=== PATIENT | female | born 1990 | race Caucasian/White ===

== ENCOUNTER → 2020-05-25 | Outpatient (REF) | payer OTHER ==
[2020-05-25 19:01] LABS: CHLAMYDIA DNA AMPLIFICATION NEGATIVE (NEGATIVE); GC DNA AMPLIFICATION NEGATIVE (NEGATIVE)
== END ==
LOC: M SFHCWAGY 16:46
PROVIDERS: ATTEND Advanced Practice Midwife
DX: Z34.81 Encounter for supervision of other normal pregnancy, first trimester (principal); Z3A.08 8 weeks gestation of pregnancy

== ENCOUNTER → 2020-06-16 | Outpatient (REF) | payer OTHER ==
[2020-06-16 12:30] LABS: HEMATOCRIT 40.9 % (36.0-47.0); HEMOGLOBIN 13.6 g/dl (12.0-15.5); MEAN CORPUSCULAR HEMOGLOBIN 31.2 pg (27.0-33.0); MEAN CORPUSCULAR HGB CONC 33.3 g/dl (32.0-36.5); MEAN CORPUSCULAR VOLUME 93.8 fl (80.0-96.0); PLATELET COUNT, AUTOMATED 420 10^3/uL (150-450); RED BLOOD COUNT 4.36 10^6/uL (4.00-5.40); WHITE BLOOD COUNT 15.5 10^3/uL (4.0-10.0)
[2020-06-16 12:59] LABS: FREE T4 1.18 NG/DL (0.76-1.46)
[2020-06-16 13:34] LABS: HEPATITIS C VIRUS ABY INDEX 0.1 INDEX (<0.8)
[2020-06-16 13:35] LABS: HIV 1&2 SCREEN CENTAUR NEGATIVE (NEGATIVE)
[2020-06-16 13:43] LABS: CHLAMYDIA DNA AMPLIFICATION NEGATIVE (NEGATIVE); GC DNA AMPLIFICATION NEGATIVE (NEGATIVE)
== END ==
LOC: M PLALAB 07:48
PROVIDERS: ATTEND Advanced Practice Midwife
DX: Z3A.08 8 weeks gestation of pregnancy (principal)

== ENCOUNTER → 2020-07-13 | Outpatient (REF) | payer OTHER | LOC: M SFHCWAGY 13:45 | PROVIDERS: ATTEND Advanced Practice Midwife | DX: Z12.4 Encounter for screening for malignant neoplasm of cervix (principal); R87.610 Atypical squamous cells of undetermined significance on cytologic smear of cervix (ASC-US) ==

== ENCOUNTER → 2020-08-14 | Outpatient (CLI) | payer OTHER ==
--- NOTE | 2020-08-14 17:03 | REP ---
INDICATION: ANATOMY COMPARISON: None. TECHNIQUE: Transabdominal obstetrical ultrasound with color Doppler evaluation. FINDINGS: Examination demonstrates a single live intrauterine in cephalic presentation. motion is identified by technologist. Placenta is noted posterior and grade 2 without evidence for placenta previa or abruption. Amniotic fluid volume is normal. Cervix measures 3.8 cm in length and appears closed.. Gestational age by LMP 20 weeks 1 day with LEILANI 12/31/2020. Gestational age by current measurements 20 weeks 2 days with LEILANI 12/30/2020. FHR equals 167 beats per minute. BPD: 5.0 cm at 21 weeks 0 days HC: 18.3 cm at 20 weeks 5 days AC: 15.1 cm at 20 weeks 2 days FL: 3.1 cm at 19 weeks 5 days HL: 3.0 cm at 19 weeks 6 days HC/AC: 1.21 Estimated weight 334 grams (44thpercentile). Anatomical assessment demonstrates normal structures including cranium, choroid plexus, cavum, cerebellum/posterior fossa, facial features, lungs, four-chamber heart/ventricular outflow tracts, diaphragm, stomach, cord insertion/three-vessel cord, kidneys/bladder, spine, and extremities. IMPRESSION: Single live intrauterine in cephalic presentation demonstrating appropriate estimated weight and growth. Anatomical assessment is complete and normal. <Electronically signed by Dmitriy Esqueda > 08/14/20 [id number]
== END ==
LOC: M WHC 15:11
PROVIDERS: ATTEND Advanced Practice Midwife
DX: O09.292 Supervision of pregnancy with other poor reproductive or obstetric history, second trimester (principal); Z3A.20 20 weeks gestation of pregnancy

== ENCOUNTER → 2020-10-18 | Outpatient (CLI) | payer OTHER | LOC: M LAB 08:18 | PROVIDERS: ATTEND Obstetrics & Gynecology | DX: Z36.89 Encounter for other specified antenatal screening (principal) ==

== ENCOUNTER 2020-10-20 16:30 | Outpatient (CLI) | payer OTHER ==
[~2020-10-20] VITALS: Ht 160 cm; Wt 57.2 kg
[2020-10-20 16:33] VITALS: BP 141/86
[2020-10-20] MEDS ORDERED: COLA100C5 PO (16:43)
[2020-10-20] MEDS ORDERED: ZOFR4TAB16 PO (16:43)
[2020-10-20] MEDS ORDERED: PRENTAB9 PO (16:43)
[2020-10-20] MEDS ORDERED: LR 1,000 ML IV SCH (16:50)
[2020-10-20] MEDS ORDERED: LACTATED RINGER'S 1000 ML IV ONE (16:50)
--- NOTE | 2020-10-20 17:09 | IPNPDOC ---
Text Note Date of Service The patient was seen on 10/20/20. NOTE Outpatient 30yo LEILANI 12/31/2020. Presents @ 29w5d with complaints of severe epigastric pain, nausea and vomiting since yesterday. Reports inability to keep fluids down. Last solids yesterday afternoon, chicken macnuggets and fries. Reports hx pancreatitis 2011. 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 Appears very ill, dry heaves. FH 135, difficult to trace due to maternal movements Uterine irritability Spec exam cervix visually LTC, FFN obtained SVE LTC, OOP NPO, IV hydration, labs, antiemetic, sonogram and reassess. Tiki Field CNM Oct 20, 2020 17:09
[2020-10-20 17:13] LABS: HEMATOCRIT 40.3 % (36.0-47.0); HEMOGLOBIN 13.6 g/dl (12.0-15.5); MEAN CORPUSCULAR HEMOGLOBIN 32.6 pg (27.0-33.0); MEAN CORPUSCULAR HGB CONC 33.7 g/dl (32.0-36.5); MEAN CORPUSCULAR VOLUME 96.6 fl (80.0-96.0); PLATELET COUNT, AUTOMATED 334 10^3/uL (150-450); RED BLOOD COUNT 4.17 10^6/uL (4.00-5.40); WHITE BLOOD COUNT 19.5 10^3/uL (4.0-10.0)
[2020-10-20] MEDS ORDERED: ONDANSETRON 4MG/2ML VIAL IV ONE (17:15)
[2020-10-20 17:30] VITALS: BP 138/80
[2020-10-20 17:39] LABS: AMYLASE 36 U/L (25-115); LIPASE 68 U/L (73-393)
[2020-10-20 17:42] LABS: ALBUMIN 3.2 GM/DL (3.2-5.2); ALT/SGPT 15 U/L (12-78); BILIRUBIN,TOTAL 0.4 MG/DL (0.2-1.0); BLOOD UREA NITROGEN 6 MG/DL (7-18); CALCIUM LEVEL 9.4 MG/DL (8.5-10.1); CARBON DIOXIDE LEVEL 22 MEQ/L (21-32); CHLORIDE LEVEL 107 MEQ/L (98-107); CREATININE FOR GFR 0.47 MG/DL (0.55-1.30); GLOMERULAR FILTRATION RATE > 60.0 (>60); GLUCOSE, FASTING 89 MG/DL (70-100); LDH LACTATE DEHYDROGENASE 138 U/L (84-246); POTASSIUM SERUM 3.4 MEQ/L (3.5-5.1); SODIUM LEVEL 138 MEQ/L (136-145); TOTAL PROTEIN 6.9 GM/DL (6.4-8.2); URIC ACID 2.8 MG/DL (2.6-6.0)
--- NOTE | 2020-10-20 18:09 | REP ---
INDICATION: nause COMPARISON: None. TECHNIQUE: Real time sneed scale ultrasound examination using curved array transducer. FINDINGS: Liver is normal in contour, size, and echogenicity without focal hepatic lesions identified. Pancreas is incompletely evaluated due to interposed bowel gas. The gallbladder is normal and without gallstones, wall thickening, or pericholecystic fluid. No biliary ductal dilatation is appreciated and the common bile duct measures 4.5 mm diameter. Right kidney is normal in reniform shape without hydronephrosis and measures 12.7 x 5.9 x 4.7 cm cm. No ascites in the visualized right upper quadrant. Incidental note is made of intrauterine in breech presentation (FHR equals 138 BPM). IMPRESSION: Essentially normal limited right upper quadrant ultrasound <Electronically signed by Dmitriy Esqueda > 10/20/20 [id number]
[2020-10-20 18:38] LABS: AMORPHOUS SEDIMENT SMALL (NEGATIVE); APPEARANCE, URINE HAZY (CLEAR); BACTERIA, URINE AUTO NEGATIVE (NEGATIVE); BILIRUBIN, URINE AUTO NEGATIVE (NEGATIVE); BLOOD, URINE BLOOD NEGATIVE (NEGATIVE); COLOR, URINE YELLOW (YELLOW); GLUCOSE, URINE (UA) AUTO NEGATIVE (NEGATIVE); KETONE, URINE AUTO 2+ mg/dL (NEGATIVE); LEUKOCYTE ESTERASE, URINE AUTO NEGATIVE (NEGATIVE); MUCUS, URINE SMALL (NEGATIVE); NITRITE, URINE AUTO NEGATIVE (NEGATIVE); PROTEIN, URINE AUTO 1+ mg/dL (NEGATIVE); RBC, URINE AUTO 2 /HPF (0-3); SPECIFIC GRAVITY URINE AUTO 1.011 (1.002-1.035); SQUAMOUS EPITHELIAL CELL UR AU 2 /HPF (0-6); WBC, URINE AUTO 1 /HPF (0-3)
[2020-10-20] MEDS: KETOROLAC 30 MG/ML 1ML VIAL IV SCH (18:47)
[2020-10-20 18:49] LABS: AMPHETAMINES URINE REFLEX NEGATIVE (NEGATIVE); BARBITURATES URINE REFLEX NEGATIVE (NEGATIVE); BENZODIAZEPINES URINE REFLEX NEGATIVE (NEGATIVE); CANNABINOIDS URINE REFLEX NEGATIVE (NEGATIVE); COCAINE METABOLITE URINE REFLE NEGATIVE (NEGATIVE); METHADONE URINE REFLEX NEGATIVE (NEGATIVE); OPIATES URINE REFLEX NEGATIVE (NEGATIVE); PHENCYCLIDINE URINE REFLEX NEGATIVE (NEGATIVE)
[2020-10-20 18:50] LABS: TOTAL PROTEIN,RANDOM URINE 35.5 MG/DL (0.0-12.0)
--- NOTE | 2020-10-20 19:51 | REP ---
INDICATION: abdominal pain, abruption? COMPARISON: 08/14/2020 TECHNIQUE: Transabdominal obstetrical ultrasound with color Doppler evaluation. FINDINGS: Examination demonstrates a single live intrauterine in breech presentation. motion is identified by technologist. Placenta is noted posterior and grade 3 without evidence for placenta previa or abruption. Amniotic fluid volume is normal. Cervix measures 3.6 cm in length and appears closed.. Selected gestational age: 28 weeks 2 days with LEILANI 01/10/2021. Gestational age by current measurements 28 weeks 2 days with LEILANI 01/10/2021. FHR equals 133 beats per minute. SJ: 12.0 cm Umbilical artery SD ratio: 2.87 Estimated weight 1178 grams (48thpercentile). No obvious abnormalities are identified. IMPRESSION: Single live intrauterine in breech presentation. No gross abnormalities are identified. <Electronically signed by Dmitriy Esqueda > 10/20/201947
[2020-10-20 20:35] VITALS: BP 134/76
[2020-10-20] MEDS: OMEPRAZOLE 20 MG CAP PO SCH (20:37)
[2020-10-20] MEDS ORDERED: DOCUSATE SODIUM 100MG CAPSULE PO SCH (21:00)
[2020-10-20] MEDS ORDERED: diphenhydrAMINE 50MG CAP PO PRN (21:15)
[2020-10-20 21:43] VITALS: BP 134/70
[2020-10-20] MEDS ORDERED: MOM 30ML SUSPENSION UDC PO ONE (22:45)
[2020-10-20] MEDS: ONDANSETRON 4MG/2ML VIAL IV PRN (23:02)
[2020-10-20 23:07] VITALS: BP 129/75
[2020-10-21] MEDS ORDERED: BISACODYL 10 MG SUPP PR PRN (01:25)
[2020-10-21 03:38] VITALS: BP 111/69
[2020-10-21] MEDS: KETOROLAC 30 MG/ML 1ML VIAL IV SCH (04:07)
[2020-10-21] MEDS: ONDANSETRON 4MG/2ML VIAL IV PRN (06:45)
[2020-10-21] MEDS ORDERED: SIMETHICONE 80MG CHEW TAB PO PRN (08:20)
--- NOTE | 2020-10-21 08:30 | IPNPDOC ---
Text Note Date of Service The patient was seen on 10/21/20. NOTE S: Feels better overall. Still has gas pain at times. Some nausea. Able to to lerate liquids. Having bowel movements since using laxative. O: AVSS NAD Abd: NT, soft, gravid FHT: Cat. I toco: none Ext: NT A/P 30 yo at 29 6/7weeks with multiple GI issues including constipation, GERD, gas build-up Plan Mylicon, omeprazole, laxative use discharge home Tylenol for pain bland diet encourage liquids fu office this week VS,Fishbone, I+O VS, Fishbone, I+O Laboratory Tests 10/20/20 16:59 Vital Signs Date Time Temp Pulse Resp B/P (MAP) Pulse Ox O2 Delivery O2 Flow Rate FiO2 10/21/20 03:38 98.6 75 18 111/69 (83) MELANIE PEREYRA MD Oct 21, 2020 08:30
[2020-10-21] MEDS: OMEPRAZOLE 20 MG CAP PO SCH (08:32)
[2020-10-21] MEDS ORDERED: ACET500P3 PO (08:38)
[2020-10-21] MEDS ORDERED: OMEP40CA4 PO (08:39)
[2020-10-21] MEDS ORDERED: SIME125T PO (08:41)
[2020-10-21] MEDS ORDERED: MILKSUS3 PO (08:42)
== END 2020-10-21 10:20 | disposition home or self-care (01) ==
LOC: M LDO 16:30
PROVIDERS: ATTEND Advanced Practice Midwife
DX: O26.893 Other specified pregnancy related conditions, third trimester (principal); Z3A.29 29 weeks gestation of pregnancy; R10.2 Pelvic and perineal pain; O21.8 Other vomiting complicating pregnancy; O99.613 Diseases of the digestive system complicating pregnancy, third trimester; K59.00 Constipation, unspecified; K21.9 Gastro-esophageal reflux disease without esophagitis
CPT/HCPCS: 36415; 59025; 76705; 76816; 76820; 80053; 80307; 81001; 82150; 82247; 82565; 82570; 82731; 83615; 83690; 84156; 84450; 84460; 84550; 85027; 87086; 96374; 96375; 96376; J1885; J2405

== ENCOUNTER → 2020-12-11 | Outpatient (REF) | payer OTHER ==
[~2020-12-11] MED LIST: ACET500P3 PO; COLA100C5 PO; MILKSUS3 PO; OMEP40CA4 PO; PRENTAB9 PO; SIME125T PO; ZOFR4TAB16 PO
== END ==
LOC: M SFHCWAGY 12:58
PROVIDERS: ATTEND Obstetrics & Gynecology
DX: Z36.85 Encounter for antenatal screening for Streptococcus B (principal); Z3A.37 37 weeks gestation of pregnancy

== ENCOUNTER 2020-12-19 23:02 | Inpatient (IN) | payer OTHER ==
[~2020-12-19] VITALS: Ht 160 cm; Wt 68.5 kg
[~2020-12-19 23:02] MED LIST changes: +ACET-897 PO; +BUSP5TA PO
[2020-12-19 23:29] VITALS: BP 125/82
[2020-12-19] MEDS ORDERED: HOME MED LIST COMPLETE! XX SCH (23:30)
[2020-12-20] VITALS (9 sets, daily range): BP systolic 108–121; BP diastolic 54–74
[2020-12-20] MEDS ORDERED: LACTATED RINGER'S 1000 ML IV STA (00:12)
[2020-12-20] MEDS ORDERED: BICITRA 30ML SOLN UDC PO ONE (00:15)
[2020-12-20] MEDS ORDERED: LR 1,000 ML IV SCH ×3 (00:15→02:05)
[2020-12-20 00:24] LABS: HEMATOCRIT 34.9 % (36.0-47.0); HEMOGLOBIN 11.9 g/dl (12.0-15.5); MEAN CORPUSCULAR HGB CONC 34.1 g/dl (32.0-36.5); MEAN CORPUSCULAR VOLUME 96.7 fl (80.0-96.0); PLATELET COUNT, AUTOMATED 379 10^3/uL (150-450); RED BLOOD COUNT 3.61 10^6/uL (4.00-5.40); WHITE BLOOD COUNT 23.9 10^3/uL (4.0-10.0)
[2020-12-20] MEDS ORDERED: ONDANSETRON 4MG/2ML VIAL IV PRN ×3 (00:57→02:05)
[2020-12-20] MEDS ORDERED: diphenhydrAMINE 50MG/ML VIAL (J1200) IV PRN (00:57)
[2020-12-20] MEDS ORDERED: METOCLOPRAMIDE INJ 10MG/2ML VIAL (J2765 PER 1) IV PRN ×2 (00:57→02:05)
[2020-12-20] MEDS ORDERED: NALOXONE INJ 0.4MG/1ML VIAL (J2310 PER 1MG) IV PRN ×2 (00:57)
[2020-12-20] MEDS ORDERED: NALBUPHINE HCL 10 MG/ML AMP (J2300) IV PRN (00:57)
[2020-12-20] MEDS ORDERED: MOM 30ML SUSPENSION UDC PO PRN (01:00)
[2020-12-20] MEDS ORDERED: PERCOCET 5MG/325MG TAB PO PRN (01:00)
[2020-12-20] MEDS ORDERED: RHOGAM 300 MCG (1500 IU) INJ (J2790) IM SCH (01:00)
[2020-12-20] MEDS ORDERED: MEASLES,MUMPS,RUBELLA VACCINE INJ (MMR-II) (90707) SC SCH (01:00)
[2020-12-20] MEDS ORDERED: OXYTOCIN DRIP 30 UNITS in IV 1 EA IV SCH (01:00)
[2020-12-20] MEDS ORDERED: SIMETHICONE 80MG CHEW TAB PO PRN (01:00)
[2020-12-20] MEDS ORDERED: IBUPROFEN 800 MG TAB PO PRN (01:00)
[2020-12-20] MEDS ORDERED: AZITHROMYCIN INJ 500 MG, VIAL MATE ADAPTER 1 EACH in NS 250 ML IV ONE (01:00)
[2020-12-20] MEDS ORDERED: ceFAZolin SOD 2 GM in IV 1 EA IV ONE (01:00)
[2020-12-20] MEDS ORDERED: ACETAMINOPHEN 1000MG 100ML IV BTL (OFIRMEV) (J0131 PER 10MG) As Ordered ONE (01:09)
[2020-12-20] MEDS ORDERED: KETOROLAC 60MG 2ML VIAL As Ordered ONE (01:09)
[2020-12-20] MEDS ORDERED: MORPHINE PRES-FREE INJ 10 MG/10 ML VIAL (J2274) As Ordered ONE (01:09)
[2020-12-20] MEDS ORDERED: dexameTHASONE 4 MG/ML 1ML VIAL (J1100 PER 1MG) As Ordered ONE (01:09)
[2020-12-20] MEDS ORDERED: ONDANSETRON 4MG/2ML VIAL As Ordered ONE (01:09)
[2020-12-20] MEDS ORDERED: OXYTOCIN 30 UNITS IN 0.9% NaCl 500ML IV BAG (J2590) As Ordered ONE (01:09)
[2020-12-20] MEDS ORDERED: METOCLOPRAMIDE INJ 10MG/2ML VIAL (J2765 PER 1) As Ordered ONE (01:13)
[2020-12-20] MEDS ORDERED: PHENYLephrine 500MCG 5ML (100MCG/ML) SYRINGE As Ordered ONE (01:18)
[2020-12-20] MEDS ORDERED: fentaNYL 100 MCG/2 ML INJECTION (J3010) As Ordered ONE (01:26)
[2020-12-20] MEDS ORDERED: MIDAZOLAM INJ 2MG/2ML VIAL (J2250 PER 1MG) As Ordered ONE (01:27)
[2020-12-20] MEDS ORDERED: fentaNYL 100 MCG/2 ML INJECTION (J3010) IV PRN (02:05)
[2020-12-20] MEDS ORDERED: oxyCODONE 5MG TAB PO PRN (02:05)
[2020-12-20] MEDS: PRENATAL VITAMINS CHEWABLE TABLET PO SCH (07:54)
[2020-12-20] MEDS: KETOROLAC 30 MG/ML 1ML VIAL IV SCH ×3 (07:54→19:16)
[2020-12-20] MEDS: DOCUSATE SODIUM 100MG CAPSULE PO SCH ×2 (07:54→20:58)
[2020-12-20] MEDS: busPIRone 5 MG TAB PO SCH ×2 (13:19→20:58)
[2020-12-20] MEDS: OMEPRAZOLE 20 MG CAP PO SCH (14:25)
[2020-12-21] MEDS: PERCOCET 5MG/325MG TAB PO PRN ×3 (01:40→17:00)
[2020-12-21 02:00] VITALS: BP 109/59
[2020-12-21] MEDS: IBUPROFEN 800 MG TAB PO SCH ×2 (04:05→12:16)
[2020-12-21 05:44] VITALS: BP 108/66
[2020-12-21 08:18] LABS: HEMATOCRIT 32.2 % (36.0-47.0); HEMOGLOBIN 10.7 g/dl (12.0-15.5); MEAN CORPUSCULAR HEMOGLOBIN 32.6 pg (27.0-33.0); MEAN CORPUSCULAR HGB CONC 33.2 g/dl (32.0-36.5); MEAN CORPUSCULAR VOLUME 98.2 fl (80.0-96.0); PLATELET COUNT, AUTOMATED 303 10^3/uL (150-450); RED BLOOD COUNT 3.28 10^6/uL (4.00-5.40); WHITE BLOOD COUNT 18.3 10^3/uL (4.0-10.0)
[2020-12-21] MEDS: DOCUSATE SODIUM 100MG CAPSULE PO SCH (08:25)
[2020-12-21] MEDS: OMEPRAZOLE 20 MG CAP PO SCH (08:25)
[2020-12-21] MEDS: PRENATAL VITAMINS CHEWABLE TABLET PO SCH (08:25)
[2020-12-21] MEDS: busPIRone 5 MG TAB PO SCH (08:30)
[2020-12-21 09:45] VITALS: BP 119/58
[2020-12-21 14:00] VITALS: BP 119/65
[2020-12-21] MEDS ORDERED: IBUP80TA PO (17:33)
[2020-12-21] MEDS ORDERED: PERCOCET PO (17:33)
== END 2020-12-21 18:30 | disposition home or self-care (01) | DRG 540 ==
LOC: M LDO 23:02 → M LDI 12-20 00:06 → M OBS 12-20 03:30
PROVIDERS: ADMIT Obstetrics & Gynecology; ATTEND Obstetrics & Gynecology
PROC: 10D00Z1 Extraction of Products of Conception, Low, Open Approach (ICD-10-PCS; principal; 2020-12-20 00:15)
DX: O32.1XX0 Maternal care for breech presentation, not applicable or unspecified (principal); F41.9 Anxiety disorder, unspecified; Z3A.38 38 weeks gestation of pregnancy; O99.334 Smoking (tobacco) complicating childbirth; F17.210 Nicotine dependence, cigarettes, uncomplicated; O99.344 Other mental disorders complicating childbirth; Z37.0 Single live birth

== ENCOUNTER → 2021-10-04 | Outpatient (REF) | payer OTHER ==
[~2021-10-04] MED LIST changes: +IBUP80TA PO; +PERCOCET PO
[2021-10-04 11:40] LABS: BASO # 0.1 10^3/uL (0.0-0.2); BASO % 0.6 % (0.0-1.0); EOS # 0.4 10^3/uL (0.0-0.5); EOS % 4.3 % (0.0-3.0); HEMATOCRIT 43.4 % (36.0-47.0); HEMOGLOBIN 14.6 g/dl (12.0-15.5); LYMPH # 2.8 10^3/uL (1.5-5.0); LYMPH % 27.6 % (24.0-44.0); MEAN CORPUSCULAR HEMOGLOBIN 29.8 pg (27.0-33.0); MEAN CORPUSCULAR HGB CONC 33.6 g/dl (32.0-36.5); MEAN CORPUSCULAR VOLUME 88.6 fl (80.0-96.0); MONO # 0.6 10^3/uL (0.0-0.8); MONO % 6.3 % (2.0-8.0); NEUTROPHILS # 6.2 10^3/uL (1.5-8.5); NEUTROPHILS % 60.8 % (36.0-66.0); PLATELET COUNT, AUTOMATED 335 10^3/uL (150-450); WHITE BLOOD COUNT 10.2 10^3/uL (4.0-10.0)
[2021-10-04 12:06] LABS: ERYTHROCYTE SEDIMENTATION RATE 14 mm/hr (0-20)
[2021-10-04 12:14] LABS: ALBUMIN 3.6 GM/DL (3.2-5.2); ALT/SGPT 18 U/L (12-78); BILIRUBIN,TOTAL 0.1 MG/DL (0.2-1.0); BLOOD UREA NITROGEN 10 MG/DL (7-18); C REACTIVE PROTEIN QUANTITATIV 1.02 MG/DL (0.00-0.30); CALCIUM LEVEL 9.5 MG/DL (8.5-10.1); CARBON DIOXIDE LEVEL 26 MEQ/L (21-32); CHLORIDE LEVEL 107 MEQ/L (98-107); CREATININE FOR GFR 0.73 MG/DL (0.55-1.30); GLOMERULAR FILTRATION RATE > 60.0 (>60); GLUCOSE, FASTING 90 MG/DL (70-100); POTASSIUM SERUM 4.3 MEQ/L (3.5-5.1); RHEUMATOID FACTOR QUANT < 10.0 IU/ML (<15.0); SODIUM LEVEL 139 MEQ/L (136-145); TOTAL PROTEIN 7.3 GM/DL (6.4-8.2)
[2021-10-06 00:08] LABS: ANA (HEP2) Negative (.); CYCLIC CITRULLINATED PEPTIDE 3 units (0-19); SSA SJOGRENS A <0.2 AI (0.0-0.9); SSB SJOGRENS B <0.2 AI (0.0-0.9)
== END ==
LOC: M SFHCCLAY 08:21
PROVIDERS: ATTEND Nurse Practitioner Family
DX: R20.9 Unspecified disturbances of skin sensation (principal)

== ENCOUNTER → 2021-10-24 | Outpatient (CLI) | payer OTHER | LOC: M RAD 10:41 | PROVIDERS: ATTEND Nurse Practitioner Family | DX: R91.1 Solitary pulmonary nodule (principal) ==

== ENCOUNTER 2021-12-08 19:28 | Inpatient (IN) | payer OTHER ==
[~2021-12-08] VITALS: Ht 160 cm; Wt 84.9 kg
[2021-12-08 21:24] VITALS: BP 127/80
[2021-12-08] MEDS ORDERED: TRI-TAB16 PO (21:46)
[2021-12-08] MEDS ORDERED: HOME MED LIST COMPLETE! XX SCH (21:50)
[2021-12-08] MEDS: HYDROMORPHONE HCL 0.5 MG/ 0.5 ML SYRINGE (J1170 PER 1) IV PRN (23:03)
[2021-12-08] MEDS: NS 1,000 ML IV SCH (23:11)
[2021-12-08] MEDS: cefTRIAXone SOD 1 GM in D5W MINI-BAG PLUS 50 ML IV SCH (23:11)
[2021-12-09] VITALS (9 sets, daily range): BP systolic 96–148; BP diastolic 58–84; O2SAT 93
[2021-12-09] MEDS: HYDROMORPHONE HCL 0.5 MG/ 0.5 ML SYRINGE (J1170 PER 1) IV PRN ×4 (02:52→14:59)
[2021-12-09] MEDS ORDERED: NS 500 ML IV ONE (03:20)
[2021-12-09] MEDS ORDERED: NS 1,000 ML IV ONE (04:20)
[2021-12-09 10:47] LABS: HEMATOCRIT 34.6 % (36.0-47.0); MEAN CORPUSCULAR HGB CONC 31.8 g/dl (32.0-36.5); MEAN CORPUSCULAR VOLUME 91.3 fl (80.0-96.0); PLATELET COUNT, AUTOMATED 268 10^3/uL (150-450); RED BLOOD COUNT 3.79 10^6/uL (4.00-5.40); WHITE BLOOD COUNT 11.9 10^3/uL (4.0-10.0)
[2021-12-09] MEDS: NS 1,000 ML IV SCH ×2 (10:57→19:43)
[2021-12-09] MEDS: TAMSULOSIN 0.4 MG CAP PO SCH (11:00)
[2021-12-09 11:15] LABS: BLOOD UREA NITROGEN 9 MG/DL (7-18); CALCIUM LEVEL 7.4 MG/DL (8.5-10.1); CARBON DIOXIDE LEVEL 22 MEQ/L (21-32); CHLORIDE LEVEL 116 MEQ/L (98-107); CREATININE FOR GFR 0.62 MG/DL (0.55-1.30); GLOMERULAR FILTRATION RATE > 60.0 (>60); GLUCOSE, FASTING 85 MG/DL (70-100); PHOSPHORUS LEVEL 2.4 MG/DL (2.5-4.9); POTASSIUM SERUM 3.7 MEQ/L (3.5-5.1); SODIUM LEVEL 143 MEQ/L (136-145)
[2021-12-09 12:37] LABS: SQUAMOUS EPITHELIAL CELL URINE SMALL AMOUNT /hpf (SMALL AMT)
[2021-12-09 12:38] LABS: BACTERIA, URINE SMALL AMOUNT; HYALINE CAST, URINE 0-1 /lpf (0-1)
[2021-12-09] MEDS: HEPARIN SOD (PORCINE) 5000UNITS/ML 1ML VIAL/SYRINGE SQ SCH ×2 (15:10→21:01)
[2021-12-09] MEDS ORDERED: MIDAZOLAM INJ 2MG/2ML VIAL (J2250 PER 1MG) As Ordered ONE (15:27)
[2021-12-09] MEDS ORDERED: fentaNYL 100 MCG/2 ML INJECTION As Ordered ONE ×2 (15:27→17:03)
[2021-12-09] MEDS ORDERED: dexameTHASONE 4 MG/ML 1ML VIAL (J1100 PER 1MG) As Ordered ONE (15:28)
[2021-12-09] MEDS ORDERED: ONDANSETRON 4MG 2ML VIAL As Ordered ONE (15:28)
[2021-12-09] MEDS ORDERED: propofoL 200 MG/20 ML VIAL As Ordered ONE (15:28)
[2021-12-09] MEDS ORDERED: LIDOCAINE 2% 100MG/5ML SDV (FOR ANES.) As Ordered ONE (15:28)
[2021-12-09] MEDS ORDERED: POTASSIUM PHOSPHATE INJ 20 MMOL in D5W 250 ML IV ONE (16:00)
[2021-12-09] MEDS ORDERED: ISOVUE-300 61% 50ML VIAL As Ordered ONE (16:21)
[2021-12-09] MEDS ORDERED: fentaNYL 100 MCG/2 ML INJECTION IV PRN (17:40)
[2021-12-09] MEDS ORDERED: oxyCODONE 5MG TAB PO PRN (17:40)
[2021-12-09] MEDS ORDERED: ONDANSETRON 4MG 2ML VIAL IV PRN (17:40)
[2021-12-09] MEDS ORDERED: LR 1,000 ML IV SCH (17:40)
[2021-12-09] MEDS ORDERED: PERCOCET 5MG/325MG TAB PO PRN (19:30)
[2021-12-09] MEDS: cefTRIAXone SOD 1 GM in D5W MINI-BAG PLUS 50 ML IV SCH (23:45)
[2021-12-10 02:00] VITALS: BP 136/83
[2021-12-10] MEDS: HEPARIN SOD (PORCINE) 5000UNITS/ML 1ML VIAL/SYRINGE SQ SCH (05:32)
[2021-12-10 06:00] VITALS: BP 138/83; O2SAT 95
[2021-12-10 06:01] LABS: BASO % 0.1 % (0.0-1.0); HEMATOCRIT 35.9 % (36.0-47.0); HEMOGLOBIN 11.9 g/dl (12.0-15.5); LYMPH # 1.9 10^3/uL (1.5-5.0); LYMPH % 16.2 % (24.0-44.0); MEAN CORPUSCULAR HEMOGLOBIN 29.8 pg (27.0-33.0); MEAN CORPUSCULAR HGB CONC 33.1 g/dl (32.0-36.5); MONO # 0.4 10^3/uL (0.0-0.8); MONO % 3.6 % (2.0-8.0); NEUTROPHILS # 9.3 10^3/uL (1.5-8.5); NEUTROPHILS % 79.8 % (36.0-66.0); PLATELET COUNT, AUTOMATED 303 10^3/uL (150-450); RED BLOOD COUNT 3.99 10^6/uL (4.00-5.40); WHITE BLOOD COUNT 11.6 10^3/uL (4.0-10.0)
[2021-12-10 06:38] LABS: BLOOD UREA NITROGEN 7 MG/DL (7-18); CALCIUM LEVEL 8.8 MG/DL (8.5-10.1); CARBON DIOXIDE LEVEL 23 MEQ/L (21-32); CHLORIDE LEVEL 111 MEQ/L (98-107); CREATININE FOR GFR 0.61 MG/DL (0.55-1.30); GLOMERULAR FILTRATION RATE > 60.0 (>60); GLUCOSE, FASTING 104 MG/DL (70-100); PHOSPHORUS LEVEL 3.5 MG/DL (2.5-4.9); POTASSIUM SERUM 3.9 MEQ/L (3.5-5.1); SODIUM LEVEL 139 MEQ/L (136-145)
[2021-12-10] MEDS: TAMSULOSIN 0.4 MG CAP PO SCH (07:53)
[2021-12-10 08:00] VITALS: BP 136/82
[2021-12-10 09:00] VITALS: O2SAT 97
[2021-12-10] MEDS ORDERED: OXYB5TAB10 PO (09:32)
[2021-12-10] MEDS ORDERED: LEVO750T14 PO (09:32)
== END 2021-12-10 10:45 | disposition home or self-care (01) | DRG 446 ==
LOC: ENRESERVDT 19:32 → ENRESERVTM 19:32 → M MS5PR 21:31
PROVIDERS: ADMIT Internal Medicine; ATTEND Internal Medicine
PROC: 0T768DZ Dilation of Right Ureter with Intraluminal Device, Via Natural or Artificial Opening Endoscopic (ICD-10-PCS; 2021-12-09)
PROC: 0TC68ZZ Extirpation of Matter from Right Ureter, Via Natural or Artificial Opening Endoscopic (ICD-10-PCS; principal; 2021-12-09 13:51)
DX: N13.2 Hydronephrosis with renal and ureteral calculous obstruction (principal); F17.210 Nicotine dependence, cigarettes, uncomplicated; N17.9 Acute kidney failure, unspecified; Z20.822 Contact with and (suspected) exposure to COVID-19; N13.9 Obstructive and reflux uropathy, unspecified; E66.9 Obesity, unspecified; Z68.33 Body mass index [BMI] 33.0-33.9, adult; Z79.890 Hormone replacement therapy; D72.829 Elevated white blood cell count, unspecified

== ENCOUNTER → 2025-01-10 | Outpatient (CLI) | payer OTHER ==
[~2025-01-10] MED LIST changes: +ATOR1TAB21; +HYDR-3363; +LEVO75TAB PO; +OXYB5TAB14 PO; +TRI-TAB16 PO
== END ==
LOC: M PLAIMG 13:26
PROVIDERS: ATTEND Specialist
DX: R59.0 Localized enlarged lymph nodes (principal)